=== PATIENT | female | born 1975 | race Caucasian/White ===

== ENCOUNTER 2023-06-26 20:10 | Emergency (ER) | payer OTHER, SELFPAY ==
[2023-06-26 20:11] VITALS: BP 191/126
[2023-06-26 20:34] VITALS: BMI 30.7
--- NOTE | 2023-06-26 20:38 | ED.GENMED ---
History of Present Illness
General
Chief Complaint: Blood Pressure Problem
Source: patient
Exam Limitations: none
Time Seen by Provider: 06/26/23 20:29
Travel History
Have you had any contact with someone who has COVID-19?: No
Do you have any symptoms of coronavirus? Fever > 100 degrees, chills, cough, shortness of breath, sore throat, loss of taste or smell, muscle aches, or headache?: No
History of Present Illness
History of Present Illness:
See MDM
Past History
Past History
ED Past Medical History: HTN
ED Past Surgical History: None
Social History
Tobacco: Smoker
Alcohol: None
Phy Exam
Physical Exam
Physical Exam:
See MDM
Course
Orders/Labs/Results
Orders:
Orders
06/26/23 20:16
Electrocardiogram (*1) Urgent
Reason for Study: Hypertension, Benign
EKG- Treatment ONCE
06/26/23 20:34
0.9% Sodium Chloride 1000 ml [Nss] 1,000 ml IV BOLUS
Ketorolac [Toradol] 30 mg IV NOW STA
Lisinopril [Zestril] 10 mg PO NOW STA
06/26/23 20:58
Complete Blood Count/With Diff Urgent
06/26/23 21:36
Comprehensive Metabolic Panel Urgent
Uric Acid Urgent
Abnormal Lab Results
06/26/23
20:58
WBC 13.6 H 10^3/uL
(4.8-10.8)
Hgb 11.5 L g/dL
(12.0-16.0)
Hct 34.5 L %
(37.0-47.0)
MCV 70.4 L fL
(81.0-99.0)
MCH 23.5 L pg
(27.0-31.0)
RDW 16.3 H %
(11.5-14.5)
Plt Count 427 H 10^3/uL
(130-400)
Abs Immat Gran (auto) 0.1 H 10^3/uL
(0-0.05)
Absolute Neuts (auto) 9.7 H 10^3/uL
(1.4-6.5)
Absolute Monos (auto) 1.2 H 10^3/uL
(0.1-0.6)
Lymphocytes % 18.3 L %
(20.5-51.1)
06/26/23 20:58
06/26/23 21:36
Vital Signs
Initial and Last Documented VS:
Initial Vital Signs
Temp Pulse Resp BP Pulse Ox
98.9 F 108 18 191/126 97
06/26/23 20:11 06/26/23 20:11 06/26/23 20:11 06/26/23 20:11 06/26/23 20:11
Last Documented Vital Signs
Temp Pulse Resp BP Pulse Ox
98.9 F 108 18 164/92 97
06/26/23 20:11 06/26/23 20:11 06/26/23 20:11 06/26/23 22:00 06/26/23 20:11
MDM/Problems Addressed
Differential Diagnosis Includes:
HPI and MDM Narrative:
47-year-old female presenting with asymptomatic hypertension. She noticed redness of her foot and she went to urgent care. She was diagnosed with gout and sent to the emergency department for uncontrolled high blood pressure. Patient states she
used to have high blood pressure but she stopped lisinopril on her own 3 years ago. We also discussed cessation of smoking she denies chest pain or shortness of breath
Given that she has tolerated lisinopril in the past and has apparently worked well for her, will give dose of lisinopril. Will obtain basic blood work to rule out endorgan damage. Will give dose of Toradol to help with gout
Physical exam
General: Well appearing and non-toxic
HEENT: protecting airway. Mildly dry mucous membranes
Neck: appears supple
CV: No evidence of cyanosis. Mild tachycardia
Resp: No accessory muscle use
Abd: Non-distended
Extremities: Mild erythema to dorsum of right foot. Pulses intact. Sensation intact
Neuro: alert
Psych: Normal affect
Skin: Intact
Problems Addressed including Acute and Chronic Conditions affecting care:
1. Asymptomatic hypertension
Acuity: acute
Prognosis: stable
Details: Will rule out endorgan damage with blood work. Will provide lisinopril and continue to reassess
2. Gout
Acuity: acute
Prognosis: stable
Details: Will start NSAIDs
3. Tachycardia
Acuity: acute
Prognosis: stable
Details: Likely related to pain and dehydration. Will reassess after pain medicine and fluids
Updates
On reevaluation, patient states she is feeling much better. Patient was comfortable going home
Differential Diagnosis (but not limited to): Gout, cellulitis, hypertension
Testing considered: Troponin which denies chest pain
Drug therapy (if applicable): OTC meds, please see d/c instruction regarding Rx drugs
Amount and/or Complexity of Data Reviewed
Clinical info obtained from: Patient
External data reviewed: N/A
Labs I independently reviewed (but not limited to): Mild leukocytosis
Radiology: N/A
Pulse Ox: not hypoxic
EKG independently reviewed: Sinus tachycardia, normal axis, no STEMI
[employer] Building [employer]: N/A
Critical Care: N/A
Risk of Complication:
Social Determinants of health: Good social support
Discussed with other providers: N/A
Escalation of Care includes Admit/Obs: After being observed in the Emergency Department, pt stable for discharge.
Occasional wrong word or 'sound a like' substitutions may have occurred due to the inherent limitations of voice recognition software. Read the chart carefully and recognize, using context, where substitutions have occurred.
*Critical Care Note
Total Time (30-74mins, 75-104mins- exclusive of procedures): Not Applicable
ED Attending Note
-
Portions of this chart may have been created with voice recognition software.� Occasional wrong word or��sound alike� substitutions may have occurred due to the inherent limitations of voice recognition software.
Discharge Plan
Departure
Patient Disposition: Home (Routine Discharge)
Date of Disposition: 06/26/23
Time of Disposition: 22:18
Patient with high blood pressure during this ER visit?: Yes
Discharge Problem:
Gout
Instructions: High Blood Pressure (DC)
Prescriptions:
New
lisinopril 10 mg tablet
10 mg PO DAILY Qty: 30 0RF
diclofenac potassium 50 mg tablet
50 mg PO BID Qty: 20 0RF
Referrals:
Natalie Sotelo DO [Family Provider] -
Activity Restrictions/Additional Instructions:
Please return for any worsening symptoms.
You may return at any time if you have further concerns.
Please follow up with your doctor at the first available appointment, preferably this week.
Watch for worsening signs: fever over 100.5', increasing pain, red streaks, swelling, or increasing drainage of pus. If any of these happen, return to ED promptly.
Thank you for choosing [facility].
Interventions
Interventions:
*Risk Screen - Suicide Last Done: 06/26/23 20:13
*General Assessment Last Done: 06/26/23 20:13
*Neglect/Abuse Screening Last Done: 06/26/23 20:13
ED- Fall Risk Assessment Last Done: 06/26/23 20:31
ED- Cardiac Assessment Last Done: 06/26/23 20:31
ED- Neurological Assessment Last Done: 06/26/23 20:31
ED- Pulmonary Assessment Last Done: 06/26/23 20:31
Discharge Date and Time
Print Language: ESTONIAN
[2023-06-26 21:05] LABS: % Basophils 0.7 % (0-2); % Eosinophils 0.9 % (0-6); % Immature Granulocytes 0.4 % (0-0.5); % Lymphocytes 18.3 % (20.5-51.1); % Monocytes 8.4 % (1.7-9.3); % Neutrophils 71.3 % (42.2-75.2); Absolute Basophils 0.1 10^3/uL (0-0.2); Absolute Eosinophils 0.1 10^3/uL (0-0.7); Absolute Immature Granulocytes 0.1 10^3/uL (0-0.05); Absolute Lymphocytes 2.5 10^3/uL (1.2-3.4); Absolute Monocytes 1.2 10^3/uL (0.1-0.6); Absolute Neutrophils 9.7 10^3/uL (1.4-6.5); Hematocrit 34.5 % (37.0-47.0); Hemoglobin 11.5 g/dL (12.0-16.0); Mean Corp Hgb Conc. 33.3 g/dL (33.0-37.0); Mean Corpuscular Hgb 23.5 pg (27.0-31.0); Mean Corpuscular Volume 70.4 fL (81.0-99.0); Mean Platelet Volume 8.5 fL (7.4-10.4); Nucleated Red Blood Cells % 0 %; Platelet Count 427 10^3/uL (130-400); Red Cell Dist. Width 16.3 % (11.5-14.5); White Blood Cell Count 13.6 10^3/uL (4.8-10.8)
[2023-06-26] MEDS: TORADOL 30 MG IV (21:08)
[2023-06-26] MEDS: ZESTRIL 10 MG PO (21:08)
[2023-06-26] MEDS: NSS 1000 IV (21:08)
[2023-06-26 21:10] VITALS: BP 175/101
[2023-06-26 22:00] VITALS: BP 164/92
[2023-06-26 22:00] LABS: ALT (SGPT) < 10 U/L (0-35); AST (SGOT) 19 U/L (14-36); Albumin 4.1 g/dl (3.5-5.0); Alkaline Phosphatase 79 U/L (38-126); Blood Urea Nitrogen 14 mg/dl (7-17); Calcium 8.9 mg/dl (8.4-10.2); Carbon Dioxide 26 mmol/L (22-30); Chloride 105 mmol/L (98-107); Estimated Creatinine Clearance 102 ml/min; Glucose 99 mg/dl (70-99); Potassium 3.7 mmol/L (3.5-5.1); Sodium 135 mmol/L (135-145); Total Bilirubin 0.6 mg/dl (0.2-1.3); Total Protein 7.2 g/dl (6.3-8.2); Uric Acid 4.1 mg/dl (2.5-6.2); eGFR > 60.00
== END 2023-06-26 22:35 | disposition home or self-care (01) ==
LOC: EMR 20:10
PROVIDERS: EMERGENCY PHYSICIAN Student in an Organized Health Care Education/Training Program; FAMILY PHYSICIAN Family Medicine
DX: M10.9 Gout, unspecified (principal); I10 Essential (primary) hypertension; F17.200 Nicotine dependence, unspecified, uncomplicated
CPT/HCPCS: 99284; 96374; 96361; 80053; 84550; 85025; 93005